=== PATIENT | male | born 1955 | race Caucasian/White ===

== ENCOUNTER 2020-05-24 19:58 | Observation (INO) ==
[2020-05-24] MEDS ORDERED: HYDROmorphone 2 MG/1 ML VIAL ONE (20:10)
[2020-05-24] MEDS ORDERED: ONDANSETRON 4 MG/2 ML VIAL ONE (20:10)
[2020-05-24] MEDS ORDERED: PROMETHAZINE 25 MG/1 ML VIAL ONE (20:12)
[2020-05-24] MEDS ORDERED: SODIUM CHLORIDE 0.9% 1,000 ML IV STA ×2 (20:19→20:56)
[2020-05-24] MEDS ORDERED: PANTOPRAZOLE 40 MG VIAL IV STA (20:19)
[2020-05-24] MEDS ORDERED: ONDANSETRON 4 MG/2 ML VIAL IV STA ×2 (20:19→21:18)
[2020-05-24] MEDS ORDERED: HYDROmorphone 2 MG/1 ML VIAL IV STA ×2 (20:19→20:38)
[2020-05-24 20:38] LABS: Basophils # 0.1 10*3/uL (0.0-0.2); Basophils % 0.9 % (0.0-0.8); Eosinophils # 0.1 10*3/uL (0.0-0.87); Eosinophils % 0.8 % (0.00-10.9); Hematocrit 46.3 VOL% (42.0-52.0); Hemoglobin 15.2 GM/DL (14.0-18.0); Immature Granulocytes % 0.5 %; Immature Granulocytes Absolute 0.04 #; Lymphocytes # 2.2 10*3/uL (1.4-4.0); Lymphocytes % 25.8 % (21.2-54.2); Mean Corpuscular HGB Conc 32.8 GM/DL (32-36); Mean Corpuscular Volume 92.4 FL (87-102); Mean Platelet Volume 8.8 FL (9.6-12.0); Monocytes % 7.2 % (1.7-12.7); Neutrophils % 64.8 % (38.7-73.9); Platelet Count 360 T/CUMM (130-400); Red Blood Count 5.01 MC/CUMM (3.8-5.5); Red Cell Distribution Width 13.3 % (9.3-17.3); White Blood Count 8.6 T/CUMM (4-12)
[2020-05-24] MEDS ORDERED: PROMETHAZINE INJ 25 MG in SODIUM CHLORIDE 0.9% 50 ML IV STA (20:41)
[2020-05-24 20:55] LABS: Alanine Aminotransferase 44 U/L (16-61); Albumin 3.9 G/DL (3.4-5.0); Alkaline Phosphatase 75 U/L (45-117); Amylase 198 U/L (25-115); Aspartate Amino Transferase 39 U/L (0-37); Blood Urea Nitrogen 18 MG/DL (7-18); Estimated Glom Filtration Rate 53 ML/MIN; Glucose 114 MG/DL (74-106); Osmolality,Calculated 275.8 MOS/KG (273-304); Total Protein 7.5 G/DL (6.4-8.3); Troponin I < 0.015 NG/ML (0.00-0.045)
[2020-05-24] MEDS ORDERED: cefTRIAXone 1,000 MG in SODIUM CHLORIDE 0.9% 100 ML IV STA (20:56)
[2020-05-24] MEDS ORDERED: PIPERACILLIN/TAZOBACTAM 3,375 MG in SODIUM CHLORIDE 0.9% 100 ML IV STA (21:00)
[2020-05-24] MEDS ORDERED: PIPERACILLIN/TAZOBACTAM 3,375 MG VIAL IV ONE (21:01)
[2020-05-24 21:46] LABS: Sedimentation Rate-Westergren 4 MM/HR (0-20)
[2020-05-24] MEDS ORDERED: HYDROmorphone 2 MG/1 ML VIAL IV PRN (22:22)
[2020-05-24] MEDS ORDERED: HYDROmorphone 2 MG TABLET PO PRN (22:22)
[2020-05-24] MEDS ORDERED: ONDANSETRON ODT 4 MG TABLET PO PRN (22:22)
[2020-05-24] MEDS: SODIUM CHLORIDE 0.9% 1,000 ML IV SCH (22:44)
[2020-05-25] MEDS: ONDANSETRON 4 MG/2 ML VIAL IV PRN ×2 (00:31→06:46)
[2020-05-25] MEDS: PROMETHAZINE 25 MG/1 ML VIAL IM PRN ×2 (01:06→08:33)
[2020-05-25] MEDS ORDERED: PROCHLORPERAZINE 25 MG SUPP RECTAL PRN ×2 (04:00→05:00)
[2020-05-25] MEDS: PIPERACILLIN/TAZOBACTAM 3,375 MG in SODIUM CHLORIDE 0.9% 100 ML IV SCH ×3 (05:57→21:01)
[2020-05-25 06:30] LABS: Basophils % 0.2 % (0.0-0.8); Eosinophils % 0.1 % (0.00-10.9); Hematocrit 42.3 VOL% (42.0-52.0); Hemoglobin 14.3 GM/DL (14.0-18.0); Immature Granulocytes % 0.4 %; Immature Granulocytes Absolute 0.06 #; Lymphocytes # 0.4 10*3/uL (1.4-4.0); Lymphocytes % 3.1 % (21.2-54.2); Mean Corpuscular HGB Conc 33.8 GM/DL (32-36); Mean Corpuscular Volume 89.8 FL (87-102); Mean Platelet Volume 9.3 FL (9.6-12.0); Monocytes % 3.3 % (1.7-12.7); Neutrophils % 92.9 % (38.7-73.9); Platelet Count 298 T/CUMM (130-400); Red Blood Count 4.71 MC/CUMM (3.8-5.5); Red Cell Distribution Width 13.1 % (9.3-17.3)
[2020-05-25 06:51] LABS: Calcium 8.3 MG/DL (8.5-10.1); Osmolality,Calculated 283.3 MOS/KG (273-304)
[2020-05-25 06:55] LABS: Band Neutrophils 1 % (0-10); Lymphocytes 4 % (20-55); Segmented Neutrophils 94 % (50-85); Total Cells Counted 100
[2020-05-25 06:56] LABS: Hypochromasia Slight; Microcytosis Slight; Platelet Estimate Adequate
[2020-05-25] MEDS ORDERED: LACTATED RINGERS 1,000 ML IV ONE (07:38)
[2020-05-25] MEDS ORDERED: ENOXAPARIN 40 MG/0.4 ML SYRINGE SUBCUT SCH (09:00)
[2020-05-25] MEDS: LACTATED RINGERS 1,000 ML IV SCH ×2 (09:37→16:32)
[2020-05-25] MEDS: PANTOPRAZOLE 40 MG VIAL IV SCH (09:39)
[2020-05-25] MEDS: KETOROLAC 10 MG TABLET PO SCH ×3 (09:43→16:34)
[2020-05-25] MEDS: OLMESARTAN 20 MG TABLET PO SCH (09:45)
[2020-05-25] MEDS: DOXYCYCLINE HYCLATE 100 MG CAPSULE PO SCH ×2 (09:45→21:01)
[2020-05-25] MEDS: DOCUSATE SODIUM 100 MG CAPSULE PO SCH ×2 (09:45→21:01)
[2020-05-25] MEDS: TAMSULOSIN 0.4 MG CAPSULE PO SCH (09:46)
[2020-05-25] MEDS: amLODIPine 5 MG TABLET PO SCH (12:04)
[2020-05-25] MEDS: PANTOPRAZOLE 40 MG TABLET PO SCH (12:04)
[2020-05-25] MEDS: SODIUM CHLORIDE 0.9% 1,000 ML IV SCH (12:15)
[2020-05-25] MEDS: ACETAMINOPHEN 325 MG TABLET PO PRN (16:35)
[2020-05-25] MEDS ORDERED: KETOROLAC 15 MG/1 ML VIAL IV PRN (16:53)
[2020-05-26] MEDS: LACTATED RINGERS 1,000 ML IV SCH ×3 (01:01→09:20)
[2020-05-26] MEDS: PIPERACILLIN/TAZOBACTAM 3,375 MG in SODIUM CHLORIDE 0.9% 100 ML IV SCH (05:59)
[2020-05-26] MEDS: ACETAMINOPHEN 325 MG TABLET PO PRN (06:06)
[2020-05-26 06:14] VITALS: BP 131/73
[2020-05-26 06:18] LABS: Basophils # 0.1 10*3/uL (0.0-0.2); Basophils % 0.4 % (0.0-0.8); Eosinophils % 0.3 % (0.00-10.9); Hematocrit 36.8 VOL% (42.0-52.0); Hemoglobin 12.4 GM/DL (14.0-18.0); Immature Granulocytes % 0.4 %; Immature Granulocytes Absolute 0.05 #; Lymphocytes # 1.4 10*3/uL (1.4-4.0); Lymphocytes % 12.3 % (21.2-54.2); Mean Corpuscular HGB Conc 33.7 GM/DL (32-36); Mean Corpuscular Volume 91.3 FL (87-102); Mean Platelet Volume 9.2 FL (9.6-12.0); Monocytes % 8.3 % (1.7-12.7); Neutrophils % 78.3 % (38.7-73.9); Platelet Count 233 T/CUMM (130-400); Red Blood Count 4.03 MC/CUMM (3.8-5.5); Red Cell Distribution Width 13.3 % (9.3-17.3); White Blood Count 11.6 T/CUMM (4-12)
[2020-05-26 06:40] LABS: Albumin 2.7 G/DL (3.4-5.0); Calcium 7.7 MG/DL (8.5-10.1); Osmolality,Calculated 281.1 MOS/KG (273-304); Total Protein 5.5 G/DL (6.4-8.3)
[2020-05-26] MEDS: DOCUSATE SODIUM 100 MG CAPSULE PO SCH (09:12)
[2020-05-26] MEDS: PANTOPRAZOLE 40 MG TABLET PO SCH (09:12)
[2020-05-26] MEDS: TAMSULOSIN 0.4 MG CAPSULE PO SCH (09:13)
[2020-05-26] MEDS: DOXYCYCLINE HYCLATE 100 MG CAPSULE PO SCH (09:13)
[2020-05-26] MEDS: OLMESARTAN 20 MG TABLET PO SCH (09:13)
[2020-05-26] MEDS ORDERED: amLODIPine 5 MG TABLET PO SCH (09:22)
[2020-05-26] MEDS: amLODIPine 5 MG TABLET PO SCH (09:23)
[2020-05-26] MEDS: PANTOPRAZOLE 40 MG VIAL IV SCH (09:23)
== END 2020-05-26 10:30 | disposition home or self-care (01) ==
LOC: N.EDINP 19:58 → N.ED 19:58 → N.TELES 22:04
PROVIDERS: ADMIT Internal Medicine; ATTEND Internal Medicine